=== PATIENT | female | born 1985 | race African-American/Black ===

== ENCOUNTER 2017-03-22 18:50 | Emergency (ER) | payer SELFPAY ==
[2017-03-22 19:02] VITALS: BP 126/68; PULSE 70; TEMP 98.7; BMI 29.8
--- NOTE | 2017-03-22 19:59 | PDOC ---
History of Present Illness - General History Source: Patient <DemarioAlexandre bosch - Last Filed: 03/22/17 22:03> - General History Source: Patient Exam Limitations: No Limitations - History of Present Illness Initial Comments: 03/22/17 20:18 The patient is a 31 year old female who is 17 weeks (A0) with no other significant PMH who presents to the emergency department with abdominal and groin pain beginning approximately 3 hours ago. The patient reports shopping at [employer] when another locomotive electrician drove a cart into the patients abdomen. The patient describes the pain as sharp and pressure like, localized in the lower abdominal and groin area, 8/10 in severity. The patient reports she was in so much pain that she had to sit. She notes that her abdominal and groin pain is aggravated by walking. The patient is currently visiting from [place] and does not have a PCP here. The patient dickson vaginal bleeding or visible amniotic fluid. Denies numbness, tingling, or weakness. Denies chest pain, shortness of breath, headache and dizziness. Denies fever, chills, nausea, vomit, diarrhea and constipation. Denies dysuria, frequency, urgency, hematuria. LMP: 11/14 Allergies: NKA Past surgical history: None reported. Social history: No reported cigarette, alcohol, or drug use. PCP: Not on Staff. <Kevin Jaffe - Last Filed: 03/22/17 22:25> - General Chief Complaint: Injury Stated Complaint: PAIN Time Seen by Provider: 03/22/17 19:47 Past History - Past Medical History Other medical history: denies - Immunization History Immunization Up to Date: Yes - Suicide/Smoking/Psychosocial Hx Smoking History: Never smoked Hx Alcohol Use: No Drug/Substance Use Hx: No <Alexandre Aguilar - Last Filed: 03/22/17 22:03> <Kevin Jaffe - Last Filed: 03/22/17 22:25> - Past Medical History Allergies/Adverse Reactions: Allergies Allergy/AdvReac Type Severity Reaction Status Date / Time No Known Allergies Allergy Verified 03/22/17 19:00 Review of Systems - Review of Systems Able to Perform ROS?: Yes Comments:: 03/22/17 20:18 CONSTITUTIONAL: Absent: fever, chills, diaphoresis, generalized weakness, malaise, loss of appetite HEENT: Absent: rhinorrhea, nasal congestion, throat pain, throat swelling, difficulty swallowing, mouth swelling, ear pain, eye pain, visual Changes CARDIOVASCULAR: Absent: chest pain, syncope, palpitations, irregular heart rate, lightheadedness , peripheral edema RESPIRATORY: Absent: cough, shortness of breath, dyspnea with exertion, orthopnea, wheezing, stridor, hemoptysis GASTROINTESTINAL: (+)RLQ abdominal pain. Absent: abdominal distension, nausea, vomiting, diarrhea, constipation, melena, hematochezia GENITOURINARY: (+) Bilateral groin pain. Absent: dysuria, frequency, urgency, hesitancy, hematuria, flank pain, genital pain MUSCULOSKELETAL: Absent: myalgia, arthralgia, joint swelling SKIN: Absent: rash, itching, pallor HEMATOLOGIC/IMMUNOLOGIC: Absent: easy bleeding, easy bruising, lymphadenopathy, frequent infections ENDOCRINE: Absent: unexplained weight gain, unexplained weight loss, heat intolerance, cold intolerance NEUROLOGIC: Absent: headache, focal weakness or paresthesias, dizziness, unsteady gait, seizure, mental status changes, bladder or bowel incontinence PSYCHIATRIC: Absent: anxiety, depression, suicidal or homicidal ideation, hallucinations. <Kevin Jaffe - Last Filed: 03/22/17 22:25> *Physical Exam - Vital Signs Last Vital Signs Temp Pulse Resp BP Pulse Ox 98.7 F 70 18 126/68 99 03/22/17 19:00 03/22/17 19:00 03/22/17 19:00 03/22/17 19:00 03/22/17 19:00 <Alexandre Aguilar - Last Filed: 03/22/17 22:03> - Vital Signs Last Vital Signs Temp Pulse Resp BP Pulse Ox 98.7 F 70 18 126/68 99 03/22/17 19:00 03/22/17 19:00 03/22/17 19:00 03/22/17 19:00 03/22/17 19:00 - Physical Exam Comments: 03/22/17 20:18 GENERAL: Well developed, well nourished. Awake and alert. No acute distress. HEENT: Normocephalic, atraumatic. PERRLA, EOMI. No conjunctival pallor. Sclera are non- icteric. Moist mucous membranes. Oropharynx is clear. NECK: Supple. Full ROM. No JVD. Carotid pulses 2+ and symmetric, without bruits. No thyromegaly. No lymphadenopathy. CARDIOVASCULAR: Regular rate and rhythm. No murmurs, rubs, or gallops. Distal pulses are 2+ and symmetric. PULMONARY: No evidence of respiratory distress. Lungs clear to auscultation bilaterally. No wheezing, rales or rhonchi. ABDOMINAL: Soft. Non-tender. Non-distended. No rebound or guarding. No organomegaly. Normoactive bowel sounds. MUSCULOSKELETAL Normal range of motion at all joints. No bony deformities or tenderness. No CVA tenderness. EXTREMITIES: No cyanosis. No clubbing. No edema. No calf tenderness. SKIN: Warm and dry. Normal capillary refill. No rashes. No jaundice. NEUROLOGICAL: Alert, awake, appropriate. Cranial nerves 2-12 intact. No deficits to light touch and temperature in face, upper extremities and lower extremities. No motor deficits in the in face, upper extremities and lower extremities. Normoreflexic in the upper and lower extremities. Normal speech. Toes are downgoing bilaterally. Gait is normal without ataxia. PSYCHIATRIC: Cooperative. Good eye contact. Appropriate mood and affect. <Kevin Jaffe - Last Filed: 03/22/17 22:25> *DC/Admit/Observation/Transfer - Discharge Dispostion Admit: No <Alexandre Aguilar - Last Filed: 03/22/17 22:03> - Attestations Scribe Attestion: 03/22/17 20:18 Documentation prepared by Kevin Jaffe, acting as medical records clerk for Alexandre Aguilar DO. <Kevin Jaffe - Last Filed: 03/22/17 22:25> Diagnosis at time of Disposition: Qualifiers: Weeks of gestation: 17 weeks Qualified Code(s): Z3A.17 - 17 weeks gestation of - Discharge Dispostion Condition at time of disposition: Fair - Referrals Referrals: STAFF,NOT ON [Primary Care Provider] - Yann Medellin MD [Staff Physician] - - Patient Instructions
--- NOTE | 2017-03-22 22:53 | PDOC ---
*Physical Exam - Vital Signs Last Vital Signs Temp Pulse Resp BP Pulse Ox 98.7 F 70 18 126/68 99 03/22/17 19:00 03/22/17 19:00 03/22/17 19:00 03/22/17 19:00 03/22/17 19:00 - Physical Exam General Appearance: Yes: Nourished, Appropriately Dressed Respiratory/Chest: positive: Lungs Clear Cardiovascular: positive: S1, S2 Gastrointestinal/Abdominal: positive: Normal Bowel Sounds, Soft Musculoskeletal: negative: CVA Tenderness (R), CVA Tenderness (L), Vertebral Tenderness (No C-spine tenderness) Integumentary: positive: Normal Color, Dry, Warm Neurologic: positive: manufacturer II-XII NML intact, Fully Oriented, Alert ED Treatment Course - ADDITIONAL ORDERS Additional order review: Laboratory Results 03/22/17 20:00 Urine HCG, Qual Positive Medical Decision Making - Medical Decision Making 03/22/17 22:55 Patient is a 31 y.o. female @ 17 weeks gestation who presents following being hit in the mid abdomen by a shopping cart handlebar. Patient was at [employer] earlier today when an employee loaded the cart with a heavy item and the cart hit patient. Patient denies any LOC, however endorses significant B/L LQ abdominal tenderness as well as sacral pain. Transvaginal U/S shows IUP @ estimated 17 weeks and 2 days gestation with FHR 143 BPM; placenta is posterior with no discernible abruption or previa. As patient is neurologically intact, ambulatory and has no C-spine or vertebral tenderness, clinical suspicion for any acute fracture, dislocation or neurological damage is low. Patient is discharged with return precautions, referral to hvac/r instructor and instruction to follow up in the next 1 week. *DC/Admit/Observation/Transfer Diagnosis at time of Disposition: Traumatic injury during in second trimester Qualifiers: Weeks of gestation: 17 weeks Qualified Code(s): Z3A.17 - 17 weeks gestation of - Discharge Dispostion Disposition: HOME Condition at time of disposition: Fair Admit: No - Prescriptions Prescriptions: Acetaminophen [Tylenol Extra Strength] 500 mg PO BID #10 tablet MDD 2 tablets - Referrals Referrals: STAFF,NOT ON [Primary Care Provider] - Yann Medellin MD [Staff Physician] - Kaylyn Ingram MD [Staff Physician] - - Patient Instructions Additional Instructions: A prescription has been called to [facility] on [address]. Please take this medication as needed. Please do not exceed two pills daily. Referral information has been provided to two obstetricians in the area, please make an appointment for follow-up in the next 7 days. Please return to the Emergency Department should you experience any worsening or concerning symptoms. - Post Discharge Activity
== END 2017-03-23 00:23 | disposition home or self-care (01) ==
LOC: JER 18:50 → SUPCPDRO 18:50 → JER 03-23 00:23
DX: O26.892 Other specified pregnancy related conditions, second trimester (principal); S39.81XA Other specified injuries of abdomen, initial encounter; W22.8XXA Striking against or struck by other objects, initial encounter; Y93.89 Activity, other specified; Y92.59 Other trade areas as the place of occurrence of the external cause; Y99.8 Other external cause status; Z3A.17 17 weeks gestation of pregnancy
CPT/HCPCS: 76815-TC; 84703; 99281-25